=== PATIENT | male | born 1995 | race Caucasian/White ===

== ENCOUNTER 2019-04-04 03:12 | Emergency (ER) | payer OTHER ==
[~2019-04-04] VITALS: Ht 177.8 cm; Wt 70.3 kg
[2019-04-04] MEDS ORDERED: KEFLEX500 M1 PO (05:53)
[2019-04-04 06:08] VITALS: BP 122/67
== END 2019-04-04 06:08 | disposition home or self-care (01) ==
LOC: M.ERS 03:12
DX: S02.2XXA Fracture of nasal bones, initial encounter for closed fracture (principal); S01.81XA Laceration without foreign body of other part of head, initial encounter; M79.644 Pain in right finger(s); Z90.89 Acquired absence of other organs; Y04.2XXA Assault by strike against or bumped into by another person, initial encounter; Y92.89 Other specified places as the place of occurrence of the external cause; Y93.89 Activity, other specified; Y99.8 Other external cause status